=== PATIENT | male | born 1960 | race African-American/Black ===

== ENCOUNTER 2024-10-25 09:58 | Inpatient (IN) | payer MEDICAID ==
[~2024-10-25] VITALS: Ht 182.9 cm; Wt 85.3 kg
[2024-10-25] VITALS (16 sets, daily range): BP systolic 73–138; BP diastolic 51–99; TEMP 97.6–98; O2SAT 95–100
[2024-10-25 11:12] LABS: EOSINOPHILS # (AUTO) 0.1 K/uL (0.0-0.7); EOSINOPHILS % (AUTO) 1.2 % (0.0-6.0); HEMATOCRIT 29 % (39-51); HEMOGLOBIN 8.7 g/dL (13.5-17.5); LYMPHOCYTES # (AUTO) 0.9 K/uL (0.8-4.8); LYMPHOCYTES % (AUTO) 18.7 % (20.0-44.0); MEAN CORPUSCULAR HEMOGLOBIN 22 PG (26.0-33.0); MEAN CORPUSCULAR HGB CONC 30 g/dl (31.0-36.0); MEAN CORPUSCULAR VOLUME 72 fL (80-96); MONOCYTES # (AUTO) 0.2 K/uL (0.1-1.30); MONOCYTES % (AUTO) 3.7 % (2.0-12.0); NEUTROPHILS # (AUTO) 3.8 K/uL (1.8-8.9); NEUTROPHILS % (AUTO) 75.4 % (43.0-81.0); PLATELET COUNT (AUTO) 121 K/uL (150-450); RED BLOOD CELL COUNT(AUTO) 4.03 MIL/uL (4.5-6.0); RED CELL DISTRIBUTION WIDTH 19.5 % (11.5-15.0)
[2024-10-25 11:25] LABS: CALCIUM, SERUM 8.9 mg/dL (8.5-10.1)
[2024-10-25 11:31] LABS: MAGNESIUM 2.2 mg/dL (1.8-2.4); PHOSPHORUS 7.5 mg/dL (2.5-4.9)
[2024-10-25 11:46] LABS: BAND % (MANUAL) 2 % (0.0-5.0); EOSINOPHILS % (MANUAL) 1 % (0-4); LYMPHOCYTES % (MANUAL) 15 % (16-48); MONOCYTES % (MANUAL) 1 % (0-11.0); MYELOCYTES % 1 % (0-0); NEUTROPHILS % (MANUAL) 80 (42-76); PLATELET ESTIMATE DECREASED
[2024-10-25 11:47] LABS: ANISOCYTOSIS 1+
[2024-10-25 11:48] LABS: CREATININE 13.4 mg/dL (0.6-1.3); POTASSIUM 8.2 mmol/L (3.5-5.1)
[2024-10-25] MEDS ORDERED: SODIUM BICARBONATE SYR 50 MEQ/50 ML DISP.SYRIN ONE (12:00)
[2024-10-25] MEDS ORDERED: CALCIUM CHLORIDE 1,000 MG/10 ML DISP.SYRIN ONE (12:01)
[2024-10-25] MEDS ORDERED: DEXTROSE 50%-WATER 50 ML DISP.SYRIN ONE (12:01)
[2024-10-25] MEDS ORDERED: SODIUM ZIRCONIUM CYCLOSILICATE 10 GM POWD.PACK ONE (12:01)
[2024-10-25] MEDS ORDERED: INSULIN REGULAR, HUMAN 100 UNIT/ML 10 ML VIAL ONE (12:01)
[2024-10-25] MEDS: SODIUM BICARBONATE SYR 50 MEQ/50 ML DISP.SYRIN IV ONE (12:04)
[2024-10-25] MEDS: DEXTROSE 50%-WATER 50 ML DISP.SYRIN IV ONE (12:05)
[2024-10-25] MEDS: INSULIN REGULAR, HUMAN 100 UNIT/ML 10 ML VIAL IV ONE (12:05)
[2024-10-25] MEDS: CALCIUM CHLORIDE 1,000 MG/10 ML DISP.SYRIN IV ONE (12:07)
[2024-10-25] MEDS ORDERED: ALBUTEROL FS 2.5 MG/3 ML VIAL.NEB ONE (12:10)
[2024-10-25] MEDS: ALBUTEROL FS 2.5 MG/3 ML VIAL.NEB NEB ONE (12:15)
[2024-10-25] MEDS: SODIUM ZIRCONIUM CYCLOSILICATE 10 GM POWD.PACK PO ONE (12:25)
[2024-10-25] MEDS ORDERED: MAGNESIUM HYDROXIDE 30 ML UDC PO PRN (14:00)
[2024-10-25] MEDS ORDERED: MAG HYDROX/AL HYDROX/SIMETH 30 ML UDC PO PRN (14:00)
[2024-10-25] MEDS ORDERED: ZOLPIDEM TARTRATE 5 MG TABLET PO PRN (14:00)
[2024-10-25] MEDS ORDERED: ACETAMINOPHEN 325 MG TABLET PO PRN (14:00)
[2024-10-25] MEDS ORDERED: ONDANSETRON HCL/PF 4 MG/2 ML VIAL IVP PRN (14:00)
[2024-10-25] MEDS ORDERED: Z GUARD REMEDY 4 OZ OINT TP PRN (14:00)
[2024-10-25] MEDS: ALBUMIN 25% 25 GM in PREMIX 1 EA IV PRN (17:05)
[2024-10-25] MEDS: IV NS 0.9% 500 ML IV ONE (18:25)
[2024-10-25 23:52] LABS: CALCIUM, SERUM 8.3 mg/dL (8.5-10.1); POTASSIUM 3.7 mmol/L (3.5-5.1)
[2024-10-26] VITALS (24 sets, daily range): BP systolic 96–136; BP diastolic 61–87; TEMP 97.3–98.3; O2SAT 92–100
[2024-10-26 00:08] LABS: CREATININE 7.6 mg/dL (0.6-1.3)
[2024-10-26 04:19] LABS: BASOPHILS % (AUTO) 0.3 % (0.0-2.0); EOSINOPHILS # (AUTO) 0.1 K/uL (0.0-0.7); EOSINOPHILS % (AUTO) 2.6 % (0.0-6.0); HEMATOCRIT 24 % (39-51); HEMOGLOBIN 7.4 g/dL (13.5-17.5); LYMPHOCYTES # (AUTO) 0.7 K/uL (0.8-4.8); LYMPHOCYTES % (AUTO) 18.5 % (20.0-44.0); MEAN CORPUSCULAR HEMOGLOBIN 22 PG (26.0-33.0); MEAN CORPUSCULAR HGB CONC 32 g/dl (31.0-36.0); MEAN CORPUSCULAR VOLUME 70 fL (80-96); MONOCYTES # (AUTO) 0.3 K/uL (0.1-1.30); MONOCYTES % (AUTO) 7.3 % (2.0-12.0); NEUTROPHILS # (AUTO) 2.7 K/uL (1.8-8.9); NEUTROPHILS % (AUTO) 71.3 % (43.0-81.0); PLATELET COUNT (AUTO) 105 K/uL (150-450); RED BLOOD CELL COUNT(AUTO) 3.35 MIL/uL (4.5-6.0); RED CELL DISTRIBUTION WIDTH 18.9 % (11.5-15.0); WHITE BLOOD COUNT (AUTO) 3.8 K/uL (4.3-11.0)
[2024-10-26 04:52] LABS: THYROID STIMULATING HORMONE 5.1 uIU/mL (0.358-3.74)
[2024-10-26 05:10] LABS: CALCIUM, SERUM 8.3 mg/dL (8.5-10.1); MAGNESIUM 1.7 mg/dL (1.8-2.4); PHOSPHORUS 4.4 mg/dL (2.5-4.9); POTASSIUM 4.3 mmol/L (3.5-5.1)
[2024-10-26 05:26] LABS: CREATININE 8.3 mg/dL (0.6-1.3)
[2024-10-26 06:27] LABS: LYMPHOCYTES % (MANUAL) 19 % (16-48); MONOCYTES % (MANUAL) 3 % (0-11.0); NEUTROPHILS % (MANUAL) 78 (42-76)
[2024-10-26 06:28] LABS: PLATELET ESTIMATE DECREASED
[2024-10-26 06:29] LABS: ANISOCYTOSIS 1+
[2024-10-26] MEDS: PANTOPRAZOLE 40 MG TABLET.DR PO SCH (08:13)
[2024-10-26] MEDS ORDERED: DEXTROSE 50%-WATER 50 ML DISP.SYRIN IV PRN (09:00)
[2024-10-26] MEDS: INSULIN REGULAR, HUMAN 100 UNIT/ML 3 ML VIAL SQ PRN (11:48)
[2024-10-26] MEDS: BLOOD SUGAR DIAGNOSTIC 1 EACH STRIP IN SCH (11:48)
[2024-10-26] MEDS: EPOETIN ALFA (10,000 UNIT) 10,000 UNIT/ML VIAL SQ SCH (14:52)
[2024-10-27] VITALS: BP 97/69; TEMP 98.1; O2SAT 98
[2024-10-27 04:00] VITALS: BP 100/73; TEMP 98.2; O2SAT 98
[2024-10-27 07:10] LABS: CALCIUM, SERUM 8.1 mg/dL (8.5-10.1); CREATININE 6.2 mg/dL (0.6-1.3); MAGNESIUM 1.7 mg/dL (1.8-2.4); PHOSPHORUS 3.5 mg/dL (2.5-4.9); POTASSIUM 3.8 mmol/L (3.5-5.1)
[2024-10-27 07:22] LABS: BASOPHILS % (AUTO) 0.5 % (0.0-2.0); EOSINOPHILS # (AUTO) 0.2 K/uL (0.0-0.7); EOSINOPHILS % (AUTO) 4.9 % (0.0-6.0); HEMATOCRIT 23 % (39-51); HEMOGLOBIN 7.3 g/dL (13.5-17.5); LYMPHOCYTES # (AUTO) 1.2 K/uL (0.8-4.8); LYMPHOCYTES % (AUTO) 34.7 % (20.0-44.0); MEAN CORPUSCULAR HEMOGLOBIN 22 PG (26.0-33.0); MEAN CORPUSCULAR HGB CONC 31 g/dl (31.0-36.0); MEAN CORPUSCULAR VOLUME 70 fL (80-96); MONOCYTES # (AUTO) 0.4 K/uL (0.1-1.30); MONOCYTES % (AUTO) 11.6 % (2.0-12.0); NEUTROPHILS # (AUTO) 1.6 K/uL (1.8-8.9); NEUTROPHILS % (AUTO) 48.3 % (43.0-81.0); PLATELET COUNT (AUTO) 98 K/uL (150-450); RED BLOOD CELL COUNT(AUTO) 3.36 MIL/uL (4.5-6.0); RED CELL DISTRIBUTION WIDTH 18.8 % (11.5-15.0); WHITE BLOOD COUNT (AUTO) 3.4 K/uL (4.3-11.0)
[2024-10-27 08:00] VITALS: BP 95/68; TEMP 98.2; O2SAT 96
[2024-10-27 12:00] VITALS: BP 81/59; TEMP 97.2; O2SAT 94
[2024-10-27 12:28] LABS: EOSINOPHILS % (MANUAL) 3 % (0-4); LYMPHOCYTES % (MANUAL) 37 % (16-48); MONOCYTES % (MANUAL) 2 % (0-11.0); NEUTROPHILS % (MANUAL) 58 (42-76); PLATELET ESTIMATE DECREASED
[2024-10-27 12:29] LABS: ANISOCYTOSIS 1+; HYPOCHROMASIA 1+; TEAR DROP CELLS 1+
[2024-10-27 17:36] VITALS: BP 98/67; TEMP 98.1; O2SAT 93
[2024-10-28] MEDS ORDERED: LEVOTHYROXINE SODIUM 75 MCG TABLET PO SCH (07:30)
== END 2024-10-27 22:30 | disposition short-term general hospital (02) | DRG 425 ==
LOC: ER 10:05 → ICU 14:07 → TELE 10-26 13:23
PROVIDERS: ADMIT Student in an Organized Health Care Education/Training Program; ATTEND Student in an Organized Health Care Education/Training Program
PROC: 5A1D70Z Performance of Urinary Filtration, Intermittent, Less than 6 Hours Per Day (ICD-10-PCS; principal; 2024-10-25)
DX: E87.5 Hyperkalemia (principal); I12.0 Hypertensive chronic kidney disease with stage 5 chronic kidney disease or end stage renal disease; N18.6 End stage renal disease; D69.6 Thrombocytopenia, unspecified; E87.20 Acidosis, unspecified; N17.9 Acute kidney failure, unspecified; E83.39 Other disorders of phosphorus metabolism; E11.22 Type 2 diabetes mellitus with diabetic chronic kidney disease; E11.51 Type 2 diabetes mellitus with diabetic peripheral angiopathy without gangrene; E03.9 Hypothyroidism, unspecified; D64.9 Anemia, unspecified; K21.9 Gastro-esophageal reflux disease without esophagitis; Z89.512 Acquired absence of left leg below knee; E83.42 Hypomagnesemia; G40.909 Epilepsy, unspecified, not intractable, without status epilepticus; M89.8X9 Other specified disorders of bone, unspecified site; Z99.2 Dependence on renal dialysis
CPT/HCPCS: 36415; 71045-TC; 80048-TC; 82962-TC; 83735-TC; 84100-TC; 84439-TC; 84443-TC; 85025-TC; 87081-TC; 87340; 90935-TC; A4216; A4223; G0378; J0885; J1815; J3490; J7030; J7040; P9047

== ENCOUNTER 2024-11-10 22:28 | Emergency (ER) | payer MEDICAID ==
[~2024-11-10] VITALS: Ht 182.9 cm; Wt 59.0 kg
[2024-11-11] MEDS: IV NS 0.9% 1,000 ML BAG IV ONE (00:10)
[2024-11-11 00:32] LABS: BASOPHILS % (AUTO) 0.7 % (0.0-2.0); EOSINOPHILS # (AUTO) 0.2 K/uL (0.0-0.7); EOSINOPHILS % (AUTO) 5.8 % (0.0-6.0); HEMATOCRIT 28 % (39-51); HEMOGLOBIN 8.4 g/dL (13.5-17.5); LYMPHOCYTES # (AUTO) 1.2 K/uL (0.8-4.8); LYMPHOCYTES % (AUTO) 35.3 % (20.0-44.0); MEAN CORPUSCULAR HEMOGLOBIN 23 PG (26.0-33.0); MEAN CORPUSCULAR HGB CONC 30 g/dl (31.0-36.0); MEAN CORPUSCULAR VOLUME 75 fL (80-96); MONOCYTES # (AUTO) 0.2 K/uL (0.1-1.30); MONOCYTES % (AUTO) 6.1 % (2.0-12.0); NEUTROPHILS # (AUTO) 1.8 K/uL (1.8-8.9); NEUTROPHILS % (AUTO) 52.1 % (43.0-81.0); PLATELET COUNT (AUTO) 123 K/uL (150-450); RED BLOOD CELL COUNT(AUTO) 3.76 MIL/uL (4.5-6.0); WHITE BLOOD COUNT (AUTO) 3.4 K/uL (4.3-11.0)
[2024-11-11 00:42] LABS: CALCIUM, SERUM 8.5 mg/dL (8.5-10.1); CARBON DIOXIDE 26 mmol/L (21-32); CHLORIDE 103 mmol/L (98-107); CREATININE 5.2 mg/dL (0.6-1.3); GLUCOSE 93 mg/dL (74-106); POTASSIUM 3.9 mmol/L (3.5-5.1); SODIUM SERUM 142 mmol/L (136-145); UREA NITROGEN, BLOOD 34 mg/dL (7-18)
[2024-11-11 00:57] LABS: ALBUMIN 4.1 g/dL (3.4-5.0); ALKALINE PHOSPHATASE 59 U/L (46-116); BILIRUBIN,DIRECT 0.1 mg/dL (0.0-0.2); BILIRUBIN,TOTAL 0.4 mg/dL (0.2-1.0); LIPASE 111 U/L (16-77); TOTAL PROTEIN, SERUM 8.6 g/dL (6.4-8.2)
[2024-11-11 01:19] LABS: ALANINE AMINOTRANSFERASE < 6 U/L (12-78); ASPARTATE AMINOTRANSFERASE 15 U/L (15-37)
[2024-11-11 04:48] VITALS: BP 125/83; TEMP 98.1; O2SAT 100
== END 2024-11-11 04:52 ==
LOC: ER 22:34
DX: R19.7 Diarrhea, unspecified (principal); I12.0 Hypertensive chronic kidney disease with stage 5 chronic kidney disease or end stage renal disease; N18.6 End stage renal disease; E11.22 Type 2 diabetes mellitus with diabetic chronic kidney disease; D61.818 Other pancytopenia; D50.9 Iron deficiency anemia, unspecified; Z89.512 Acquired absence of left leg below knee; Z99.2 Dependence on renal dialysis; Z86.69 Personal history of other diseases of the nervous system and sense organs
CPT/HCPCS: 99283; 36415; 96360; 85025; 80048; 83690; 80076; J7030

== ENCOUNTER 2024-12-18 12:56 | Inpatient (IN) | payer MEDICAID ==
[~2024-12-18] VITALS: Ht 170.2 cm; Wt 57.6 kg
[2024-12-18] VITALS (24 sets, daily range): BP systolic 81–137; BP diastolic 63–105; O2SAT 91–100
[2024-12-18 15:09] LABS: BASOPHILS % (AUTO) 0.5 % (0.0-2.0); EOSINOPHILS # (AUTO) 0.1 K/uL (0.0-0.7); EOSINOPHILS % (AUTO) 1.5 % (0.0-6.0); HEMATOCRIT 31 % (39-51); HEMOGLOBIN 9.4 g/dL (13.5-17.5); LYMPHOCYTES # (AUTO) 1.2 K/uL (0.8-4.8); LYMPHOCYTES % (AUTO) 25.1 % (20.0-44.0); MEAN CORPUSCULAR HEMOGLOBIN 24 PG (26.0-33.0); MEAN CORPUSCULAR HGB CONC 31 g/dl (31.0-36.0); MEAN CORPUSCULAR VOLUME 77 fL (80-96); MONOCYTES # (AUTO) 0.4 K/uL (0.1-1.30); MONOCYTES % (AUTO) 8.5 % (2.0-12.0); NEUTROPHILS # (AUTO) 3.1 K/uL (1.8-8.9); NEUTROPHILS % (AUTO) 64.4 % (43.0-81.0); PLATELET COUNT (AUTO) 73 K/uL (150-450); RED BLOOD CELL COUNT(AUTO) 3.98 MIL/uL (4.5-6.0); RED CELL DISTRIBUTION WIDTH 20.3 % (11.5-15.0); WHITE BLOOD COUNT (AUTO) 4.8 K/uL (4.3-11.0)
[2024-12-18 15:20] LABS: CALCIUM, SERUM 9.3 mg/dL (8.5-10.1)
[2024-12-18 15:27] LABS: CREATININE 15.8 mg/dL (0.6-1.3); POTASSIUM 8.2 mmol/L (3.5-5.1)
[2024-12-18 15:38] LABS: INR 1.18 (0.91-1.10); PARTIAL THROMBOPLASTIN TIME 39.2 SEC (24.3-34.3)
[2024-12-18] MEDS ORDERED: INSULIN REGULAR, HUMAN 100 UNIT/ML 10 ML VIAL ONE (15:56)
[2024-12-18] MEDS ORDERED: DEXTROSE 50%-WATER 50 ML DISP.SYRIN ONE (15:56)
[2024-12-18] MEDS ORDERED: FOLI0.8T23 PO (16:05)
[2024-12-18] MEDS ORDERED: LIDO30AD10 TP (16:05)
[2024-12-18] MEDS ORDERED: MIDO5TAB4 PO (16:05)
[2024-12-18] MEDS ORDERED: ATOR40TA PO (16:05)
[2024-12-18] MEDS ORDERED: POLY17PO4 PO (16:05)
[2024-12-18] MEDS ORDERED: ASPI-1169 PO (16:05)
[2024-12-18] MEDS ORDERED: MAGN400O6 PO (16:05)
[2024-12-18] MEDS ORDERED: PANT40TA49 PO (16:05)
[2024-12-18] MEDS ORDERED: LEVE500T20 PO ×2 (16:05)
[2024-12-18] MEDS ORDERED: DOCU100C36 PO (16:05)
[2024-12-18] MEDS ORDERED: SENN-261 PO ×2 (16:05)
[2024-12-18] MEDS: INSULIN REGULAR, HUMAN 100 UNIT/ML 10 ML VIAL IV ONE (16:05)
[2024-12-18] MEDS ORDERED: SUCR1TAB PO (16:05)
[2024-12-18] MEDS ORDERED: ALBUTEROL FS 2.5 MG/3 ML VIAL.NEB ONE ×2 (16:05→16:39)
[2024-12-18] MEDS ORDERED: SEVE800T7 PO (16:05)
[2024-12-18] MEDS ORDERED: INSU100V30 SQ (16:05)
[2024-12-18] MEDS: DEXTROSE 50%-WATER 50 ML DISP.SYRIN IV ONE (16:05)
[2024-12-18] MEDS ORDERED: GABA-532 PO (16:05)
[2024-12-18] MEDS ORDERED: BISA10SU11 RC (16:05)
[2024-12-18] MEDS: ALBUTEROL FS 2.5 MG/3 ML VIAL.NEB NEB ONE (16:09)
[2024-12-18] MEDS: Calcium Gluconate 1GM/10ML 4.65 MEQ in IV NS 0.9% 100 ML IV ONE (16:10)
[2024-12-18] MEDS ORDERED: SODIUM POLYSTYRENE SULFONATE 15 G/60 ML BOTTLE ONE (16:25)
[2024-12-18] MEDS: SODIUM POLYSTYRENE SULFONATE 15 G/60 ML BOTTLE PO ONE (16:30)
[2024-12-18] MEDS: ALBUTEROL FS 2.5 MG/0.5 ML VIAL.NEB NEB SCH (16:41)
[2024-12-18 16:52] LABS: SITE, VBG VBG - N/A; VBG BASE EXCESS -22.5 mmol/L (-2.0-3.0); VBG COHb 1.1 % (0.5-1.5); VBG HCO3 8.3 mmol/L (22.0-29.0); VBG MetHb 0.3 % (0.5-1.5); VBG O2Hb 70.8 % (0-79); VBG OXYGEN SATURATION 71.8 % (60.0-85.0); VBG PCO2 38.5 mmHg (38.0-54.0); VBG PH 6.952 (7.320-7.430); VBG PO2 53.2 mmHg (23.0-48.0); VBG TOTAL HEMOGLOBIN 9.4 G/dL (13.5-17.5)
[2024-12-18] MEDS ORDERED: SODIUM BICARBONATE SYR 50 MEQ/50 ML DISP.SYRIN IV ONE (17:00)
[2024-12-18] MEDS: Sodium Bicarbonate 150 MEQ in IV NS 0.9% 1,000 ML IV PRN (17:25)
[2024-12-18] MEDS ORDERED: ONDANSETRON HCL/PF 4 MG/2 ML VIAL IVP PRN (18:00)
[2024-12-18] MEDS ORDERED: Z GUARD REMEDY 4 OZ OINT TP PRN (18:00)
[2024-12-18] MEDS ORDERED: MAGNESIUM HYDROXIDE 30 ML UDC PO PRN (18:00)
[2024-12-18] MEDS ORDERED: ACETAMINOPHEN 325 MG TABLET PO PRN (18:00)
[2024-12-18] MEDS ORDERED: MAG HYDROX/AL HYDROX/SIMETH 30 ML UDC PO PRN (18:00)
[2024-12-18] MEDS ORDERED: BISACODYL SUPP (10 MG) 10 MG/SUPP.RECT SUPP.RECT RC PRN (19:00)
[2024-12-18] MEDS ORDERED: SENNOSIDES 8.6 MG TABLET PO PRN (19:00)
[2024-12-18 19:42] LABS: ANISOCYTOSIS 1+; EOSINOPHILS % (MANUAL) 1 % (0-4); LYMPHOCYTES % (MANUAL) 25 % (16-48); MONOCYTES % (MANUAL) 6 % (0-11.0); NEUTROPHILS % (MANUAL) 68 (42-76); PLATELET ESTIMATE DECREASED
[2024-12-18 19:43] LABS: ROULEAUX 1+; TEAR DROP CELLS 1+
[2024-12-18] MEDS: ALBUMIN 25% 25 GM in PREMIX 1 EA IV PRN (19:56)
[2024-12-18] MEDS: ATORVASTATIN 40 MG TABLET PO SCH (22:02)
[2024-12-18] MEDS: GABAPENTIN 100 MG CAPSULE PO SCH (22:02)
[2024-12-18] MEDS: SUCRALFATE 1 G TABLET PO SCH (22:02)
[2024-12-19] VITALS (19 sets, daily range): BP systolic 114–158; BP diastolic 62–98; TEMP 97.4–98.6; O2SAT 87–100
[2024-12-19 07:20] LABS: BASOPHILS % (AUTO) 0.5 % (0.0-2.0); EOSINOPHILS # (AUTO) 0.1 K/uL (0.0-0.7); EOSINOPHILS % (AUTO) 4.1 % (0.0-6.0); HEMATOCRIT 25 % (39-51); HEMOGLOBIN 8.1 g/dL (13.5-17.5); LYMPHOCYTES # (AUTO) 0.7 K/uL (0.8-4.8); LYMPHOCYTES % (AUTO) 22.8 % (20.0-44.0); MEAN CORPUSCULAR HEMOGLOBIN 24 PG (26.0-33.0); MEAN CORPUSCULAR HGB CONC 32 g/dl (31.0-36.0); MEAN CORPUSCULAR VOLUME 74 fL (80-96); MONOCYTES # (AUTO) 0.3 K/uL (0.1-1.30); MONOCYTES % (AUTO) 11.3 % (2.0-12.0); NEUTROPHILS # (AUTO) 1.8 K/uL (1.8-8.9); NEUTROPHILS % (AUTO) 61.3 % (43.0-81.0); PLATELET COUNT (AUTO) 66 K/uL (150-450); RED BLOOD CELL COUNT(AUTO) 3.41 MIL/uL (4.5-6.0); RED CELL DISTRIBUTION WIDTH 19.7 % (11.5-15.0)
[2024-12-19 07:36] LABS: CALCIUM, SERUM 9.3 mg/dL (8.5-10.1); PHOSPHORUS 4.3 mg/dL (2.5-4.9); POTASSIUM 4.1 mmol/L (3.5-5.1)
[2024-12-19 07:41] LABS: CREATININE 8.5 mg/dL (0.6-1.3)
[2024-12-19 09:02] LABS: EOSINOPHILS % (MANUAL) 3 % (0-4); LYMPHOCYTES % (MANUAL) 23 % (16-48); MONOCYTES % (MANUAL) 4 % (0-11.0); NEUTROPHILS % (MANUAL) 70 (42-76); PLATELET ESTIMATE DECREASED
[2024-12-19 09:04] LABS: ANISOCYTOSIS 1+
[2024-12-19] MEDS: DOCUSATE SODIUM 100 MG CAPSULE PO SCH (09:49)
[2024-12-19] MEDS: LEVETIRACETAM (250 MG) 250 MG TABLET PO SCH ×2 (09:49→16:14)
[2024-12-19] MEDS: MIDODRINE HCL (5MG) 5 MG TABLET PO SCH (09:49)
[2024-12-19] MEDS: ASPIRIN 81 MG TAB.CHEW PO SCH (09:50)
[2024-12-19] MEDS: SEVELAMER CARBONATE 800 MG TABLET PO SCH (09:50)
[2024-12-19] MEDS: LIDOCAINE 5% (PATCH) 1 EA PATCH TP SCH (09:52)
[2024-12-20] VITALS: BP 124/79; TEMP 98.1; O2SAT 100
[2024-12-20 04:00] VITALS: BP 120/79; TEMP 97.5; O2SAT 100
[2024-12-20 14:16] LABS: CALCIUM, SERUM 9.1 mg/dL (8.5-10.1); MAGNESIUM 2.2 mg/dL (1.8-2.4); PHOSPHORUS 5.7 mg/dL (2.5-4.9); POTASSIUM 4.6 mmol/L (3.5-5.1)
[2024-12-20 14:18] LABS: BASOPHILS % (AUTO) 0.6 % (0.0-2.0); EOSINOPHILS # (AUTO) 0.2 K/uL (0.0-0.7); EOSINOPHILS % (AUTO) 4.9 % (0.0-6.0); HEMATOCRIT 25 % (39-51); LYMPHOCYTES # (AUTO) 1.3 K/uL (0.8-4.8); LYMPHOCYTES % (AUTO) 35.6 % (20.0-44.0); MEAN CORPUSCULAR HEMOGLOBIN 24 PG (26.0-33.0); MEAN CORPUSCULAR HGB CONC 32 g/dl (31.0-36.0); MEAN CORPUSCULAR VOLUME 75 fL (80-96); MONOCYTES # (AUTO) 0.5 K/uL (0.1-1.30); MONOCYTES % (AUTO) 13.8 % (2.0-12.0); NEUTROPHILS # (AUTO) 1.6 K/uL (1.8-8.9); NEUTROPHILS % (AUTO) 45.1 % (43.0-81.0); PLATELET COUNT (AUTO) 67 K/uL (150-450); RED BLOOD CELL COUNT(AUTO) 3.33 MIL/uL (4.5-6.0); RED CELL DISTRIBUTION WIDTH 19.5 % (11.5-15.0); WHITE BLOOD COUNT (AUTO) 3.6 K/uL (4.3-11.0)
[2024-12-20 14:33] LABS: CREATININE 10.5 mg/dL (0.6-1.3)
[2024-12-20 17:36] LABS: LYMPHOCYTES % (MANUAL) 32 % (16-48); MONOCYTES % (MANUAL) 12 % (0-11.0); NEUTROPHILS % (MANUAL) 50 (42-76)
[2024-12-20 17:37] LABS: ANISOCYTOSIS 1+; BASOPHILS % (MANUAL) 2 % (0.0-2.0); EOSINOPHILS % (MANUAL) 4 % (0-4); PLATELET ESTIMATE DECREASED
[2024-12-20 20:00] VITALS: BP 107/75; TEMP 98.2; O2SAT 97
[2024-12-21] VITALS: BP 122/85; TEMP 97.5; O2SAT 97
[2024-12-21 04:00] VITALS: BP 126/88; TEMP 97.8; O2SAT 96
[2024-12-21 06:59] LABS: ALANINE AMINOTRANSFERASE < 6 U/L (12-78); ALBUMIN 4.4 g/dL (3.4-5.0); ALKALINE PHOSPHATASE 85 U/L (46-116); ASPARTATE AMINOTRANSFERASE 9 U/L (15-37); BILIRUBIN,TOTAL 0.5 mg/dL (0.2-1.0); CARBON DIOXIDE 26 mmol/L (21-32); CHLORIDE 96 mmol/L (98-107); CREATININE 6.2 mg/dL (0.6-1.3); GLUCOSE 72 mg/dL (74-106); PHOSPHORUS 2.8 mg/dL (2.5-4.9); POTASSIUM 3.7 mmol/L (3.5-5.1); SODIUM SERUM 134 mmol/L (136-145); TOTAL PROTEIN, SERUM 8.7 g/dL (6.4-8.2); UREA NITROGEN, BLOOD 45 mg/dL (7-18)
[2024-12-21 07:01] LABS: BASOPHILS % (AUTO) 0.7 % (0.0-2.0); EOSINOPHILS # (AUTO) 0.2 K/uL (0.0-0.7); EOSINOPHILS % (AUTO) 4.9 % (0.0-6.0); HEMATOCRIT 29 % (39-51); HEMOGLOBIN 9.2 g/dL (13.5-17.5); LYMPHOCYTES # (AUTO) 1.2 K/uL (0.8-4.8); MEAN CORPUSCULAR HEMOGLOBIN 24 PG (26.0-33.0); MEAN CORPUSCULAR HGB CONC 32 g/dl (31.0-36.0); MEAN CORPUSCULAR VOLUME 74 fL (80-96); MONOCYTES # (AUTO) 0.6 K/uL (0.1-1.30); MONOCYTES % (AUTO) 15.4 % (2.0-12.0); PLATELET COUNT (AUTO) 77 K/uL (150-450); RED BLOOD CELL COUNT(AUTO) 3.85 MIL/uL (4.5-6.0); RED CELL DISTRIBUTION WIDTH 19.1 % (11.5-15.0)
[2024-12-21 07:30] VITALS: BP 107/75; TEMP 97.7; O2SAT 96
[2024-12-21 08:33] VITALS: BP 107/75
[2024-12-21 10:48] LABS: EOSINOPHILS % (MANUAL) 2 % (0-4); LYMPHOCYTES % (MANUAL) 26 % (16-48); NEUTROPHILS % (MANUAL) 72 (42-76); PLATELET ESTIMATE DECREASED
[2024-12-21 10:49] LABS: ANISOCYTOSIS 1+
== END 2024-12-21 13:18 | DRG 425 ==
LOC: ER 13:01 → TELE1 15:56 → ICU 18:07 → TELE 12-19 14:26
PROVIDERS: ADMIT Internal Medicine; ATTEND Nurse Practitioner Acute Care
PROC: 5A1D70Z Performance of Urinary Filtration, Intermittent, Less than 6 Hours Per Day (ICD-10-PCS; principal; 2024-12-18)
DX: E87.5 Hyperkalemia (principal); J96.21 Acute and chronic respiratory failure with hypoxia; E11.649 Type 2 diabetes mellitus with hypoglycemia without coma; E83.9 Disorder of mineral metabolism, unspecified; D63.1 Anemia in chronic kidney disease; E87.20 Acidosis, unspecified; I12.0 Hypertensive chronic kidney disease with stage 5 chronic kidney disease or end stage renal disease; N18.6 End stage renal disease; K21.9 Gastro-esophageal reflux disease without esophagitis; E11.51 Type 2 diabetes mellitus with diabetic peripheral angiopathy without gangrene; G40.909 Epilepsy, unspecified, not intractable, without status epilepticus; Z99.2 Dependence on renal dialysis; E03.9 Hypothyroidism, unspecified; M89.8X9 Other specified disorders of bone, unspecified site; N40.0 Benign prostatic hyperplasia without lower urinary tract symptoms; E11.22 Type 2 diabetes mellitus with diabetic chronic kidney disease; E87.79 Other fluid overload; Z89.432 Acquired absence of left foot
CPT/HCPCS: 36415; 71045-TC; 80048-TC; 80053-TC; 82803-TC; 83735-TC; 84100-TC; 84132-TC; 84484-TC; 85025-TC; 85730-TC; 87081-TC; 90935-TC; 93307-TC; A4216; G0378; J0612; J1815; J7030; P9047

== ENCOUNTER 2024-12-22 08:27 | Inpatient (IN) | payer MEDICAID ==
[~2024-12-22] VITALS: Ht 170.2 cm; Wt 63.5 kg
[~2024-12-22 08:27] MED LIST: ASPI-1169 PO; ATOR40TA PO; BISA10SU11 RC; DOCU100C36 PO; FOLI0.8T23 PO; GABA-532 PO; INSU100V30 SQ; LEVE500T20 PO; LIDO30AD10 TP; MAGN400O6 PO; MIDO5TAB4 PO; PANT40TA49 PO; POLY17PO4 PO; SENN-261 PO; SEVE800T7 PO; SUCR1TAB PO
[2024-12-22 08:51] LABS: BASOPHILS % (AUTO) 0.6 % (0.0-2.0); EOSINOPHILS # (AUTO) 0.2 K/uL (0.0-0.7); EOSINOPHILS % (AUTO) 4.7 % (0.0-6.0); HEMATOCRIT 30 % (39-51); HEMOGLOBIN 9.2 g/dL (13.5-17.5); LYMPHOCYTES # (AUTO) 1.6 K/uL (0.8-4.8); MEAN CORPUSCULAR HEMOGLOBIN 24 PG (26.0-33.0); MEAN CORPUSCULAR HGB CONC 31 g/dl (31.0-36.0); MEAN CORPUSCULAR VOLUME 77 fL (80-96); MONOCYTES # (AUTO) 0.6 K/uL (0.1-1.30); MONOCYTES % (AUTO) 15.3 % (2.0-12.0); NEUTROPHILS # (AUTO) 1.7 K/uL (1.8-8.9); NEUTROPHILS % (AUTO) 40.4 % (43.0-81.0); PLATELET COUNT (AUTO) 71 K/uL (150-450); RED BLOOD CELL COUNT(AUTO) 3.89 MIL/uL (4.5-6.0); RED CELL DISTRIBUTION WIDTH 18.8 % (11.5-15.0); WHITE BLOOD COUNT (AUTO) 4.1 K/uL (4.3-11.0)
[2024-12-22 08:59] LABS: CALCIUM, SERUM 9.1 mg/dL (8.5-10.1); POTASSIUM 4.7 mmol/L (3.5-5.1)
[2024-12-22 09:08] LABS: CREATININE 9.1 mg/dL (0.6-1.3)
[2024-12-22 09:55] LABS: LYMPHOCYTES % (MANUAL) 37 % (16-48); NEUTROPHILS % (MANUAL) 46 (42-76)
[2024-12-22 09:56] LABS: EOSINOPHILS % (MANUAL) 6 % (0-4); MONOCYTES % (MANUAL) 11 % (0-11.0)
[2024-12-22] MEDS ORDERED: DEXTROSE 50%-WATER 50 ML DISP.SYRIN IV PRN (10:30)
[2024-12-22] MEDS ORDERED: INSULIN REGULAR, HUMAN 100 UNIT/ML 3 ML VIAL SQ PRN (10:30)
[2024-12-22] MEDS ORDERED: *INSULIN REGULAR(HUMULIN R)HUM 100 UNIT/ML VIAL SQ PRN (10:30)
[2024-12-22] MEDS ORDERED: SENNOSIDES 8.6 MG TABLET PO PRN (10:30)
[2024-12-22] MEDS ORDERED: BISACODYL SUPP (10 MG) 10 MG/SUPP.RECT SUPP.RECT RC PRN (10:30)
[2024-12-22] MEDS ORDERED: MAG HYDROX/AL HYDROX/SIMETH 30 ML UDC PO PRN (10:30)
[2024-12-22] MEDS ORDERED: ACETAMINOPHEN 325 MG TABLET PO PRN (10:30)
[2024-12-22] MEDS ORDERED: ONDANSETRON HCL/PF 4 MG/2 ML VIAL IVP PRN (10:30)
[2024-12-22] MEDS ORDERED: Z GUARD REMEDY 4 OZ OINT TP PRN (10:30)
[2024-12-22] MEDS ORDERED: POLYETHYLENE GLYCOL 3350 17 GM POWD.PACK PO PRN (10:30)
[2024-12-22] MEDS ORDERED: MAGNESIUM HYDROXIDE 30 ML UDC PO PRN ×2 (10:30)
[2024-12-22] MEDS: BLOOD SUGAR DIAGNOSTIC 1 EACH STRIP VI SCH (12:00)
[2024-12-22] MEDS: SUCRALFATE 1 G TABLET PO SCH (12:00)
[2024-12-22] MEDS: GABAPENTIN 100 MG CAPSULE PO SCH (13:00)
[2024-12-22] MEDS: MIDODRINE HCL (5MG) 5 MG TABLET PO SCH (13:00)
[2024-12-22] MEDS: SEVELAMER CARBONATE 800 MG TABLET PO SCH (13:00)
[2024-12-22] MEDS: SENNOSIDES 8.6 MG TABLET PO SCH (17:00)
[2024-12-22] MEDS: DOCUSATE SODIUM 100 MG CAPSULE PO SCH (17:00)
[2024-12-22] MEDS: PANTOPRAZOLE 40 MG TABLET.DR PO SCH (17:00)
[2024-12-22 18:00] VITALS: BP 123/82; TEMP 97.8; O2SAT 98
[2024-12-22] MEDS: LEVETIRACETAM (250 MG) 250 MG TABLET PO SCH (18:00)
[2024-12-23 07:04] VITALS: BP 98/71; TEMP 98; O2SAT 95
[2024-12-23 08:00] VITALS: BP 107/80; TEMP 97.6; O2SAT 96
[2024-12-23] MEDS: LEVETIRACETAM (250 MG) 250 MG TABLET PO SCH (09:00)
[2024-12-23] MEDS: ASPIRIN 81 MG TAB.CHEW PO SCH (09:00)
[2024-12-23] MEDS: LIDOCAINE 5% (PATCH) 1 EA PATCH TP SCH (09:00)
== END 2024-12-23 14:30 | DRG 425 ==
LOC: ER 08:33 → TELE 11:00
PROVIDERS: ADMIT Internal Medicine; ATTEND Internal Medicine
PROC: 5A1D70Z Performance of Urinary Filtration, Intermittent, Less than 6 Hours Per Day (ICD-10-PCS; principal; 2024-12-22)
DX: E87.79 Other fluid overload (principal); I13.2 Hypertensive heart and chronic kidney disease with heart failure and with stage 5 chronic kidney disease, or end stage renal disease; N18.6 End stage renal disease; E11.22 Type 2 diabetes mellitus with diabetic chronic kidney disease; E83.9 Disorder of mineral metabolism, unspecified; D64.9 Anemia, unspecified; E03.9 Hypothyroidism, unspecified; E78.5 Hyperlipidemia, unspecified; G40.909 Epilepsy, unspecified, not intractable, without status epilepticus; N40.0 Benign prostatic hyperplasia without lower urinary tract symptoms; I50.9 Heart failure, unspecified; K21.9 Gastro-esophageal reflux disease without esophagitis; M89.8X9 Other specified disorders of bone, unspecified site; Z79.4 Long term (current) use of insulin; Z99.2 Dependence on renal dialysis; E11.42 Type 2 diabetes mellitus with diabetic polyneuropathy; Z89.512 Acquired absence of left leg below knee; Z79.82 Long term (current) use of aspirin
CPT/HCPCS: 36415; 71045-TC; 80048-TC; 82962-TC; 85025-TC; G0378